=== PATIENT | male | born 1985 | race Hispanic/Latino ===

== ENCOUNTER 2025-01-04 10:22 | Emergency (ER) | payer OTHER ==
[~2025-01-04] VITALS: Ht 175.3 cm; Wt 104.8 kg
--- NOTE | 2025-01-04 10:41 | ERN ---
ED Note History of Present Illness Stated Complaint: MEDICAL CLEARANCE Chief Complaint: Medical Clearance Time Seen by MD: 10:28 Time Seen by Midlevel: 10:30 Dictation: 39-year-old male with no past medical history coming in under custody for medical clearance. Patient states two months ago he had a fracture in his leg and has a have surgery today. Patient is here stating that he needs something telling the officers that he can not with the in correction because he has surgery and while they. Patient denies any recent trauma to the right leg. He is unable to tell me where the fractures. Patient has an orthopedic boot on. Allergies: Coded Allergies: No Known Allergies (Unverified Allergy, Unknown, 01/04/25) Past Medical History Past Medical History: No Pertinent History Surgical History: None Review of System Dictation Constitutional: Negative for fever,chills, and weight loss Eyes: Negative for injury, pain,redness, and discharge ENT: Negative for injury,pain or swelling Cardiovascular: Negative for chest pain, palpitations, and edema Respiratory: Negative for shortness of breath, cough, and wheezing, Abdomen/GI: Negative for abdominal pain, nausea, vomiting, diarrhea, and constipation Back: Negative for injury and pain : Negative for injury, bleeding and discharge MS/Extremity: Negative for injury and deformity Skin: Negative for rash, and discoloration Neuro: Negative for headache, weakness, numbness, tingling, and seizure Psych: Negative for suicide ideation, homicidal ideation, and hallucinations Review of Systems: was completed Initial Vital Sign VS Vital Signs Date Time Temp Pulse Resp B/P (MAP) Pulse Ox O2 Delivery O2 Flow Rate FiO2 01/04/25 10:23 97.9 95 20 134/91 99 Room Air 0 Physical Exam Dictation General: awake, alert, NAD Head/Face: Normocephalic, atraumatic Eyes: PERRL, EOMI, vision at baseline ENT: oral cavity clear, TMs clear, no signs of infection Neck: Trachea midline, supple, no nuchal rigidity Cardiovascular: RRR, normal S1/S2, No MRGs, no JVD Respiratory: CTAB, no respiratory distress, No rales or wheezes Abdomen: Soft, non-tender, non-distended, normal bowel sounds, no guarding or rebound. Skin: Warm, dry, normal turgor, no rash MS/Extremity: Pulses equal, no cyanosis, neurovascular intact, FROM Neuro: COAx4, GCS 15, strength 5/5, CN 2-12 intact, normal cerebellar exam, normal gait, Psych: Normal behavior, mood, and affect normal ED Course ED Course Orders Procedure Category Date Status Time Tibia/Fibula 2vws Rt RAD 01/04/25 Resulted 10:35 Ankle 2vws Rt RAD 01/04/25 Taken 10:35 Vital Signs Date Time Temp Pulse Resp B/P (MAP) Pulse Ox O2 Delivery O2 Flow Rate FiO2 01/04/25 10:23 97.9 95 20 134/91 99 Room Air 0 Medical Decision Making MDM MDM: 39-year-old male with no past medical history coming in under custody for medical clearance. Patient states two months ago he had a fracture in his leg and has a have surgery today. Patient is here stating that he needs something telling the officers that he can not with the in correction because he has surgery and while they. Patient denies any recent trauma to the right leg. He is unable to tell me where the fractures. Patient has an orthopedic boot on.X-rays show an oblique fracture with displacement involving the proximal fibula. Fracture di splacement is seen involving the medial malleolus of the distal tibia, fracture fragment is seen adjacent to the fracture site. There might be mild talotibial joint dislocation. Spoke to Dr. Iglesias, orthopedic on-call, she recommended patient be admitted. Spoke to patient regarding recommendations of Orthopedic, patient wants to leave against medical advice. Patient was explained benefits risks about leaving including and complications of the fracture. Patient verbalized understanding, it is still wants to leave against medical advice. Differential diagnosis: Tib-fib fracture, contusion, ankle fracture Rationale: Tests considered and ordered secondary to shared decision making include: Previous outside records reviewed: Old ER visits. Risk of complication and/or morbidity or mortality of patient management: None Medications-Per medication reconciliation Need for hospitalization: Patient does not meet criteria for hospitalization. Need for emergency major/minor surgery: No There are no social concerns with this patient. Prescription drug management Prescriptions will include symptomatic care Patient's prior external medical records from other ER visits were reviewed by me as indicated. Prior testing and results from previous visits were reviewed. Prior tests were taken into account with medical decision making and resource utilization, independent historian/historians were used to obtain complete medical history. I independently interpreted the test that were performed, results were reviewed by me and considered findings on radiology if ordered. Medical management and examination interpretation discussions were had by me with other qualified healthcare professionals as indicated for the patient's care. DX & DISP Disposition: AMA Departure Impression: Primary Impression: Left against medical advice Additional Impressions: Fracture, fibula, proximal, Malleolar fracture Condition: Against Medical Advice I have reviewed the case, and I agree with, Diagnosis and Plan AUDREY BOWERS NP January 04, 2025 10:41
--- NOTE | 2025-01-04 12:16 | HMCIMG ---
TIBIA/FIBULA 2VWS RT HISTORY: Fracture/pain COMPARISON: None TECHNIQUE: 3 images of right tibia and fibula were obtained. FINDINGS: Oblique fracture with displacement are seen involving the proximal fibula. Fracture displacement is seen involving the medial malleolus of the distal tibia. Fracture fragment is seen adjacent to the fracture site. There may be mild talotibial joint dislocation. Degenerative changes are seen. IMPRESSION: 1. Findings as described above.
[2025-01-04 12:34] VITALS: BP 134/91; PULSE 95; RESP 18; TEMP 97.9; O2SAT 99
--- NOTE | 2025-01-04 12:54 | HMCIMG ---
ANKLE 2VWS RT HISTORY: Pain COMPARISON: None TECHNIQUE: 3 images of right ankle were obtained. FINDINGS: Comminuted fractures displacement are seen involving the base of the distal tibia with adjacent fracture fragments. Talar tibial joint dislocation is seen. Soft tissue swelling Degenerative changes are seen. IMPRESSION: 1. Findings as described above.
== END 2025-01-04 12:39 | disposition left against medical advice (07) ==
LOC: EDH 10:22 → EEVIPCON 10:22 → EDH 12:39
DX: S82.401A Unspecified fracture of shaft of right fibula, initial encounter for closed fracture (principal); S82.891A Other fracture of right lower leg, initial encounter for closed fracture; X58.XXXA Exposure to other specified factors, initial encounter; Y93.89 Activity, other specified; Y92.89 Other specified places as the place of occurrence of the external cause; Y99.8 Other external cause status
CPT/HCPCS: 73590; 73600; 99284